=== PATIENT | female | born 1990 | race Caucasian/White ===

== ENCOUNTER 2020-04-24 14:44 | Emergency (ER) | payer OTHER, SELFPAY ==
--- NOTE | 2020-04-24 14:46 | ED.GENADULT ---
HPI - General Adult General Chief complaint: Dental/Oral Stated complaint: Tooth Pain Time Seen by Provider: 04/24/20 14:46 Source: patient Mode of arrival: ambulatory Limitations: no limitations History of Present Illness HPI narrative: 30-year-old female patient resents to the [facility] with complaints of right dermoid pain for the past 2 weeks. Patient states she has a dentist appointment but cannot get in until June 2020. Patient states that the pain to the right side has been getting worse and is actually causing swelling to the cheek and pain radiates to the ear. Patient states she has been taking 800 mg of Motrin for the pain. Patient states she has been having difficulty eating. Denies any chest pain, shortness of breath or trouble swallowing. Patient denies any fevers, body aches or chills that she is aware of. Related Data Home Medications Medication Instructions Recorded Confirmed levonorgestrel [Mirena] 1 device INTRAUTERINE ONCE 04/24/20 04/24/20 Allergies Allergy/AdvReac Type Severity Reaction Status Date / Time No Known Allergies Allergy Verified 04/24/20 14:56 Review of Systems Review of Systems: Narrative: CONSTITUTIONAL: Denies fever, chills, or sweats. EYES: Denies visual changes, redness, or discharge. ENT: Denies rhinorrhea, congestion, sore throat, or otalgia. Positive right-sided dental pain x2 weeks CARDIOVASCULAR: Denies chest pain, palpitations, or edema. RESPIRATORY: Denies cough or dyspnea. GASTROINTESTINAL: Denies abdominal pain, nausea, vomiting, or diarrhea. GENITOURINARY: Denies dysuria or hematuria. SKIN: Denies rash or itching. MUSCULOSKELETAL: Denies back pain, joint pain, or myalgia. NEUROLOGIC: Denies headache, numbness, or weakness. PSYCHIATRIC: Denies anxiety or depression. PMFSH Social History Social History Gender identity (if verbalized by the patient): Female Comments At the time of my signature I agree with nursing past medical history, surgical, social, and family history. There is no relevant family history pertinent to the presenting complaint. Exam Narrative: Exam Narrative: GENERAL: Well-appearing, well-nourished, and in no acute distress. HEAD: Normocephalic, atraumatic. EYES: PERRLA and EOMI. ENT: Nares clear, no rhinorrhea or epistaxis. Mucous membranes moist. Posterior pharynx with no erythema, tonsillar Meme, exudates or lesions present. The right side of the oral cavity on the lower area does have erythema noted radiating there is around the first, second bicuspid as well as first molar. There is some tenderness noted. Possibly an abscess but it is not obvious. There is no active drainage at this time. Patient has several dental caries noted throughout the oral cavity. Patient does have some obvious swelling noted to the outside of the mandible jaw area. NECK: Supple. No lymphadenopathy CHEST: Clear to auscultation. No respiratory distress. HEART: Regular rate and rhythm. No murmur heard. Normal peripheral pulses. ABDOMEN: Soft, nontender, nondistended, normal active bowel sounds. EXTREMITIES: Normal range of motion. No edema. SKIN: Warm, dry, no rash. NEURO: No focal deficits. Alert and oriented x3. Course Vital Signs Vital signs: Vital Signs Temperature 36.2 C L 04/24/20 14:53 Pulse Rate 76 04/24/20 14:53 Respiratory Rate 16 04/24/20 14:53 Blood Pressure 129/70 04/24/20 14:53 Pulse Oximetry 100 04/24/20 14:53 Temperature 36.2 C L 04/24/20 14:53 Pulse Rate 76 04/24/20 14:53 Respiratory Rate 16 04/24/20 14:53 Blood Pressure 129/70 04/24/20 14:53 Pulse Oximetry 100 04/24/20 14:53 Vital signs reviewed Medical Decision Making Differential Diagnosis Differential Diagnosis: Differential diagnosis: Dental caries, periodontal disease, avulsed tooth, tooth infections, mandibular infection, Zaki's angiana, upper tooth infection, dry socket, gingivitis,
[2020-04-24 14:53] VITALS: BP 129/70; PULSE 76; RESP 16; TEMP 36.2; O2SAT 100
== END 2020-04-24 15:20 | disposition home or self-care (01) ==
PROVIDERS: Emergency Provider Nurse Practitioner Family
DX: K08.89 Other specified disorders of teeth and supporting structures (principal); K02.9 Dental caries, unspecified; K04.7 Periapical abscess without sinus; K05.10 Chronic gingivitis, plaque induced
CPT/HCPCS: 99213; G0463

== ENCOUNTER 2020-05-28 19:28 | Emergency (ER) | payer OTHER, SELFPAY ==
--- NOTE | 2020-05-28 19:49 | ED.DENTAL ---
HPI - Dental/Oral General Chief complaint: Dental/Oral Stated complaint: tooth psin History of Present Illness HPI Narrative: This is a 30-year-old comes in complaining of chronic dental caries on acute dental pain. Patient's had this pain chronically but this episodes been 2 days ago. Have to make patient has a dental appointment on June 10 she is hopefully she is hoping to get all of her teeth pulled Related Data Home Medications Medication Instructions Recorded Confirmed levonorgestrel [Mirena] 1 device INTRAUTERINE ONCE 04/24/20 04/24/20 Symbicort 05/28/20 albuterol 05/28/20 Allergies Allergy/AdvReac Type Severity Reaction Status Date / Time No Known Allergies Allergy Verified 04/24/20 14:56 Review of Systems Review of Systems: Narrative: CONSTITUTIONAL: Denies fever, chills, or sweats. EYES: Denies visual changes, redness, or discharge. ENT: Denies rhinorrhea, congestion, sore throat, or otalgia. Dental pain CARDIOVASCULAR:Denies chest pain, palpitations, or edema. RESPIRATORY: Denies cough or dyspnea. GASTROINTESTINAL: Denies abdominal pain, nausea, vomiting, or diarrhea. GENITOURINARY: Denies dysuria or hematuria. SKIN:[Denies rash or itching. MUSCULOSKELETAL:Denies back pain, joint pain, or myalgia. NEUROLOGIC: Denies headache, numbness, or weakness. PSYCHIATRIC:Denies anxiety or depression PMFSH Social History Social History Gender identity (if verbalized by the patient): Female Comments At time as signature, I have reviewed and agree with nursing past medical, social, surgical and family history. Please see nursing chart for further information. There is no relevant family history pertinent to the presenting complaint. Exam Narrative: Exam Narrative: GENERAL:Well-appearing, well-nourished, and in no acute distress. HEAD:Normocephalic, atraumatic. EYES: PERRLA and EOMI. ENT: Nares clear, no rhinorrhea or epistaxis. Mucous membranes moist. Multiple dental cavities and caries all throughout the mouth fractured teeth upper and lower too many to count NECK: Supple. CHEST: Clear to auscultation. No respiratory distress. HEART: Regular rate and rhythm. No murmur heard. Normal peripheral pulses. ABDOMEN: Soft, nontender, nondistended, normal active bowel sounds. EXTREMITIES: Normal range of motion. No edema. SKIN: Warm, dry, no rash. NEURO: No focal deficits. Alert and oriented x3. Course Vital Signs Vital signs: Vital Signs Temperature 97.7 F 05/28/20 19:53 Pulse Rate 67 05/28/20 19:53 Respiratory Rate 16 05/28/20 19:53 Blood Pressure 105/61 05/28/20 19:53 Pulse Oximetry 98 05/28/20 19:53 Temperature 97.7 F 05/28/20 19:53 Pulse Rate 67 05/28/20 19:53 Respiratory Rate 16 05/28/20 19:53 Blood Pressure 105/61 05/28/20 19:53 Pulse Oximetry 98 05/28/20 19:53 MDM - Dental/Oral Differential Diagnosis Differential diagnosis: Likely gingival abscess, dental caries, toothache, dental abscess and fracture of tooth Discharge Plan Discharge Clinical Impression: Toothache, Dental caries Patient Disposition: Home, Self-Care Condition: Stable Instructions: Antibiotic Form, Dental Abscess (ED) Additional Instructions: Antibiotic as directed Avoid temperature extremes May apply heat or ice to the face Gentle brushing and flossing Alternate tylenol and ibuprofen as needed for pain Follow-up with the dentist as soon as possible--see the list provided Prescriptions: New ibuprofen 600 mg tablet 600 mg PO TID PRN (Reason: fever or pain) Qty: 20 RF: 0 prednisone 10 mg tablet 30 mg PO DAILY 4 Days Qty: 12 RF: 0 amoxicillin 500 mg capsule 500 mg PO Q12H 10 Days Qty: 20 RF: 0 No Action Mirena 20 mcg/24 hours (6 yrs) 52 mg Intrauterine Device 1 device INTRAUTERINE ONCE RF: 0 Symbicort RF: 0 albuterol RF: 0 Follow-up/Referrals: UNKNOWN
[2020-05-28 19:53] VITALS: BP 105/61; PULSE 67; RESP 16; TEMP 36.5; O2SAT 98
== END 2020-05-28 20:00 | disposition home or self-care (01) ==
PROVIDERS: Emergency Provider Nurse Practitioner Family
DX: K02.9 Dental caries, unspecified (principal); J45.909 Unspecified asthma, uncomplicated
CPT/HCPCS: 99213; G0463

== ENCOUNTER 2022-05-12 13:49 | Emergency (ER) | payer OTHER, SELFPAY ==
[2022-05-12 14:41] VITALS: BP 132/68; PULSE 107; RESP 16; TEMP 36.5; O2SAT 98
--- NOTE | 2022-05-12 14:59 | PC.NURSE ---
Patient and mother seen leaving ED. Patient advised to stay in ER and be seen by provider but mother states they are leaving. Patient ambulated out of ED with a steady gait. Patient educated to return to ED if symptoms worsen or continue.
== END 2022-05-12 14:59 | disposition left against medical advice (07) ==
DX: R22.0 Localized swelling, mass and lump, head (principal)
CPT/HCPCS: 99199